=== PATIENT | male | born 1940 | race American Indian/Alaskan Native ===

== ENCOUNTER 2017-07-04 18:07 | Emergency (ER) | payer SELFPAY ==
[2017-07-04] MEDS ORDERED: NACL 0.9% 500 ML 500 ML IV ONE ×2 (20:21→23:09)
[2017-07-04 21:11] LABS: Hematocrit 36.3 % (35.5-45.6); Hemoglobin 11.8 gm/dl (11.8-15.2); Mean Corpuscular HGB Conc 33 % (32-34); Mean Corpuscular Hemoglobin 27 pg (28-32); Mean Corpuscular Volume 83 fl (84-94); Platelet Count 174 K/mm3 (140-440); Red Blood Count 4.38 M/mm3 (3.65-5.03); Red Cell Distribution Width 14.6 % (13.2-15.2)
[2017-07-04 21:27] LABS: Alanine Aminotransferase 19 units/L (7-56); Albumin 3.9 g/dL (3.9-5); BUN/Creatinine Ratio 14; Blood Urea Nitrogen 15 mg/dL (9-20); Calcium 8.4 mg/dL (8.4-10.2); Hemolysis Index 10
--- NOTE | 2017-07-04 21:28 | XRay Report ---
FINAL REPORT EXAM: XR CHEST 1V AP HISTORY: possible Sepsis TECHNIQUE: Single, portable chest x-ray. PRIORS: None. FINDINGS: Cardiac and mediastinal silhouette within normal limits. Lungs are normally expanded, without significant vascular congestion. No focal consolidation or apparent pneumothorax. Degenerative change in the thoracic spine. IMPRESSION: 1. No acute findings.
[2017-07-04 21:46] LABS: Basophils % (Manual) 0 % (0.0-1.8); Eosinophils % (Manual) 0 % (0.0-4.3); Total Cells Counted 100
[2017-07-04 21:47] LABS: Anisocytosis Few; Helmet Cells Rare; Ovalocytes Few
--- NOTE | 2017-07-04 21:49 | Emergency Department Report ---
ED General Adult HPI - General Chief complaint: Fever Stated complaint: FEVER,LETHARGIC Time Seen by Provider: 07/04/17 20:31 Source: EMS Mode of arrival: Ambulatory Limitations: No Limitations - History of Present Illness Initial comments: 77 yo male who comes in today due to fever. He states that the family checked his temperature on yesterday and it was 103. The patient also felt as though he had chills on yesterday. Today, he states that he feels fine. Denies any chest pain, shortness of breath, fever, chills, or other complaints. Temperature 99.3 on evaluation. -: days(s) (one ) Severity scale (0 -10): 0 Consistency: now resolved Associated Symptoms: denies other symptoms Treatments Prior to Arrival: none - Related Data Home Medications Medication Instructions Recorded Confirmed Last Taken AtorvaSTATin [Lipitor] 40 mg PO QHS 02/01/17 02/01/17 Unknown Ibuprofen [Motrin] 800 mg PO Q8HR PRN 02/01/17 02/01/17 Unknown Metoprolol [Lopressor] 25 mg PO BID 02/01/17 02/01/17 Unknown Tamsulosin [Flomax] 0.4 mg PO QDAY 02/01/17 02/01/17 Unknown amLODIPine [Norvasc] 5 mg PO DAILY 02/01/17 02/01/17 Unknown metFORMIN [Glucophage] 500 mg PO BID 02/01/17 02/01/17 Unknown Previous Rx's Medication Instructions Recorded Last Taken Type Ciprofloxacin HCl [Cipro] 500 mg PO BID #20 tablet 07/04/17 Unknown Rx Ondansetron [Zofran Odt] 4 mg PO Q8HR PRN #20 tab.rapdis 07/04/17 Unknown Rx Allergies Allergy/AdvReac Type Severity Reaction Status Date / Time Sulfa (Sulfonamide Allergy Swelling Verified 02/01/17 10:21 Antibiotics) ED Review of Systems ROS: Stated complaint: FEVER,LETHARGIC Other details as noted in HPI Constitutional: see HPI, fever Eyes: denies: eye pain, eye discharge, vision change ENT: denies: ear pain, throat pain Respiratory: denies: cough, shortness of breath, wheezing Cardiovascular: denies: chest pain, palpitations Endocrine: no symptoms reported Gastrointestinal: denies: abdominal pain, nausea, diarrhea Genitourinary: denies: urgency, dysuria Musculoskeletal: denies: back pain, joint swelling, arthralgia Skin: denies: rash, lesions Neurological: denies: headache, weakness, paresthesias Psychiatric: denies: anxiety, depression Hematological/Lymphatic: denies: easy bleeding, easy bruising ED Past Medical Hx - Past Medical History Previous Medical History?: Yes Hx Hypertension: Yes (X 15 YRS) Hx Heart Attack/AMI: No Hx Diabetes: Yes Hx GERD: Yes Hx Liver Disease: No Hx Renal Disease: Yes (BPH) Hx Sickle Cell Disease: No Hx Seizures: No - Social History Smoking Status: Former Smoker Substance Use Type: None - Medications Home Medications: Home Medications Medication Instructions Recorded Confirmed Last Taken Type AtorvaSTATin [Lipitor] 40 mg PO QHS 02/01/17 02/01/17 Unknown History Ibuprofen [Motrin] 800 mg PO Q8HR PRN 02/01/17 02/01/17 Unknown History Metoprolol [Lopressor] 25 mg PO BID 02/01/17 02/01/17 Unknown History Tamsulosin [Flomax] 0.4 mg PO QDAY 02/01/17 02/01/17 Unknown History amLODIPine [Norvasc] 5 mg PO DAILY 02/01/17 02/01/17 Unknown History metFORMIN [Glucophage] 500 mg PO BID 02/01/17 02/01/17 Unknown History Ciprofloxacin HCl [Cipro] 500 mg PO BID #20 tablet 07/04/17 Unknown Rx Ondansetron [Zofran Odt] 4 mg PO Q8HR PRN #20 tab.rapdis 07/04/17 Unknown Rx ED Physical Exam - General Limitations: No Limitations General appearance: alert, in no apparent distress - Head Head exam: Present: atraumatic, normocephalic - Eye Eye exam: Present: normal appearance - ENT ENT exam: Present: mucous membranes moist - Neck Neck exam: Present: normal inspection - Respiratory Respiratory exam: Present: normal lung sounds bilaterally. Absent: respiratory distress - Cardiovascular Cardiovascular Exam: Present: tachycardia - Extremities Exam Extremities exam: Present: normal inspection - Back Exam Back exam: Present: normal inspection - Neurological Exam Neurological exam: Present: alert, oriented X3 - Psychiatric Psychiatric exam: Present: normal affect, normal mood - Skin Skin exam: Present: warm, dry, intact, normal color. Absent: rash ED Course Vital Signs 01/11/18 20:15 Temperature 99.3 F Pulse Rate 107 H Respiratory 20 Rate Blood Pressure 148/79 Blood Pressure 148/79 [Right] O2 Sat by Pulse 94 Oximetry ED Medical Decision Making - Lab Data Result diagrams: 07/04/17 20:55 07/04/17 20:55 - EKG Data -: EKG Interpreted by Me EKG shows normal: sinus rhythm Rate: normal - EKG Data When compared to previous EKG there are: previous EKG unavailable Interpretation: no acute changes, normal EKG - Radiology Data Radiology results: report reviewed (No acute pathology ) - Medical Decision Making Sepsis Uti Dehydration - Differential Diagnosis sepsis, uti, dehydration Critical care attestation.: If time is entered above; I have spent that time in minutes in the direct care of this critically ill patient, excluding procedure time. ED Disposition Clinical Impression: UTI (urinary tract infection), Dehydration Disposition: TO HOME OR SELFCARE Is pt being admited?: No Does the pt Need Aspirin: No Condition: Stable Instructions: Dehydration (ED), Urinary Tract Infection in Men (ED) Additional Instructions: Take medicine as prescribed. May take tylenol 650 mg by mouth every 6-8 hours for temperature greater than 100.4. Follow up with your provider on discharge as scheduled. Prescriptions: Ciprofloxacin HCl [Cipro] 500 mg PO BID #20 tablet Ondansetron [Zofran Odt] 4 mg PO Q8HR PRN #20 tab.rapdis PRN Reason: Nausea And Vomiting Referrals: PARTH LAMBERT MD [Primary Care Provider] - 3-5 Days Time of Disposition: 23:27
[2017-07-04 22:42] LABS: Bacteria,Urine 1+ /HPF (Negative); Bilirubin,Urine NEG (Negative); Blood,Urine SM (Negative); Color,Urine Yellow (Yellow); Mucus,Urine FEW /HPF; Nitrite,Urine POS (Negative); Urobilinogen,Urine < 2.0 mg/dL (<2.0)
[2017-07-04] MEDS ORDERED: ROCEPHIN/NS 1 GM/50 ML 1 GM/50 ML BAG IV ONE (23:06)
[2017-07-04] MEDS ORDERED: cefTRIAXone 1 GM in NACL 0.9% 20 ML IV ONE (23:15)
[2017-07-04] MEDS ORDERED: NACL 0.9% 1000 ML 1,000 ML ONE (23:46)
[2017-07-05 00:03] VITALS: BP 132/68
== END 2017-07-05 00:45 | disposition home or self-care (01) ==
LOC: ED 18:07
DX: N39.0 Urinary tract infection, site not specified (principal); E86.0 Dehydration; I10 Essential (primary) hypertension; E11.9 Type 2 diabetes mellitus without complications; K21.9 Gastro-esophageal reflux disease without esophagitis; N40.0 Benign prostatic hyperplasia without lower urinary tract symptoms; Z88.2 Allergy status to sulfonamides; Z87.891 Personal history of nicotine dependence
CPT/HCPCS: 36415; 71045; 80053; 81001; 82140; 82805; 85007; 85025; 85610; 87040; 87076; 87086; 87186; 87400; 93005; 93010; 96361; 96374; 99284; J0696; J7030; J7040

== ENCOUNTER 2017-11-04 07:25 | Day surgery (SDC) | payer MEDICARE ==
[~2017-11-04 07:25] MED LIST: LACTATED RINGERS 1,000 ML IV SCH
[2017-11-04] MEDS ORDERED: DILAUDID IV PRN (08:40)
--- NOTE | 2017-11-04 08:40 | Anesthesia Day of Surgery ---
Anesthesia Day of Surgery - Day of Surgery Patient Examined: Yes Patient H&P Reviewed: Yes Patient is NPO: Yes Beta Blockers: Yes
--- NOTE | 2017-11-04 08:40 | Anesthesia Consultation ---
Anesthesia Consult and Med Hx Date of service: 11/04/17 - Airway Anesthetic Teeth Evaluation: Poor (loose) ROM Head & Neck: Adequate Mental/Hyoid Distance: Adequate Mallampati Class: Class II Intubation Access Assessment: Probably Good - Pulmonary Exam CTA: Yes - Cardiac Exam Cardiac Exam: RRR - Pre-Operative Health Status ASA Pre-Surgery Classification: ASA3 Proposed Anesthetic Plan: General - Pulmonary Hx Smoking: Yes (STOPPED X 20YRS-1/4 PPD X 18 YRS) Hx Respiratory Symptoms: Yes (hx bronchitis 30 yrs ago) Hx Sleep Apnea: (ABIMAEL PRE SCREEN HIGH RISK) - Cardiovascular System Hx Hypertension: Yes (X 15 YRS) Hx Heart Attack/AMI: No Hx Percutaneous Transluminal Coronary Angioplasty (PTCA): No - Central Nervous System Hx Seizures: No CVA: No Hx Back Pain: Yes - Endocrine Hx Liver Disease: No Hx Non-Insulin Dependent Diabetes: Yes - Hematic Hx Anemia: Yes Hx Sickle Cell Disease: No - Other Systems Hx Obesity: No - Additional Comments Anesthesia Medical History Comments: HLD, BPH, hoarse voice, poor historian
[2017-11-04] MEDS ORDERED: LOPRESSOR PO NR (08:48)
[2017-11-04 08:53] LABS: Hematocrit 36.6 % (35.5-45.6); Hemoglobin 12.1 gm/dl (11.8-15.2); Mean Corpuscular HGB Conc 33 % (32-34); Mean Corpuscular Hemoglobin 28 pg (28-32); Mean Corpuscular Volume 84 fl (84-94); Red Blood Count 4.37 M/mm3 (3.65-5.03)
[2017-11-04 08:54] LABS: Basophils # (Auto) 0.1 K/mm3 (0.0-0.1); Basophils % (Auto) 1.2 % (0.0-1.8); Eosinophils # (Auto) 0.2 K/mm3 (0.0-0.4); Eosinophils % (Auto) 2.4 % (0.0-4.3); Lymphocytes # (Auto) 2.7 K/mm3 (1.2-5.4); Lymphocytes % (Auto) 40.1 % (13.4-35.0); Monocytes # (Auto) 0.4 K/mm3 (0.0-0.8); Platelet Count 203 K/mm3 (140-440); Red Cell Distribution Width 13.8 % (13.2-15.2)
[2017-11-04] MEDS ORDERED: XYLOCAINE MPF 2% ONE (09:01)
[2017-11-04] MEDS ORDERED: SUBLIMAZE ONE (09:01)
[2017-11-04] MEDS ORDERED: DIPRIVAN 10 MG/ML IV ONE (09:02)
[2017-11-04] MEDS ORDERED: QUELICIN ONE (09:31)
[2017-11-04] MEDS ORDERED: ZEMURON IV ONE (09:31)
[2017-11-04] MEDS ORDERED: ANCEF/STERILE WATER 2 GM/20 ML IV NR (10:00)
[2017-11-04] MEDS ORDERED: ePHEDrine SULFATE ONE (10:14)
[2017-11-04] MEDS ORDERED: WATER FOR IRRIG STERILE IR ONE ×2 (10:41)
[2017-11-04] MEDS ORDERED: DECADRON ONE (10:46)
[2017-11-04] MEDS ORDERED: ROBINUL ONE (11:45)
[2017-11-04] MEDS ORDERED: LASIX ONE (11:45)
[2017-11-04] MEDS ORDERED: ZOFRAN ONE (11:45)
[2017-11-04] MEDS ORDERED: NEOSTIGMINE ONE (11:45)
--- NOTE | 2017-11-04 11:55 | Discharge Summary ---
Short Stay Discharge Plan Activity: other (no straining ) Weight Bearing Status: Full Weight Bearing Diet: low salt Wound: open to air, other (ice to perineum ) Special Instructions: other (ice pack ) Durable Medical Equipment Needed Upon Discharge: other (roland ) Follow up with: Julián SOUTH MD, [Primary Care Provider] - 7 Days KARLY SANTANA MD [Staff Physician] - 7 Days
--- NOTE | 2017-11-04 12:02 | Post Operative Note ---
Date of procedure: 11/04/17 Pre-op diagnosis: cap Post-op diagnosis: same Findings: 40 gram galnd Procedure: cysto sro ablation Anesthesia: GETA Surgeon: KARLY SANTANA Estimated blood loss: minimal Pathology: none Condition: stable Disposition: PACU
[2017-11-04] MEDS ORDERED: HumuLIN R SUB-Q NR (12:24)
--- NOTE | 2017-11-04 12:56 | Operative Report ---
PREOPERATIVE DIAGNOSES: Prostate cancer, low-grade, slow growing, left lobe. POSTOPERATIVE DIAGNOSES: Prostate cancer, low-grade, slow growing, left lobe. PROCEDURE: Cystoscopy, cryoablation of the prostate. SURGEON: Jose Maria Faust MD ANESTHESIA: General. FINDINGS: The gentleman with adenocarcinoma of the prostate. All options and treatment availability were discussed. He now elects for cryoablation of the prostate. Risks and implications discussed. DESCRIPTION OF PROCEDURE: The patient was brought to the operating room and placed on the operating table. Following induction of anesthesia, placed in lithotomy position, prepped and draped in usual sterile fashion. The cryoprobes were all tested. We elected to use 4 probes on the left and 5 on the right after measurement. Initially, a Mccall catheter was placed and the ultrasound measured the gland to be about 44 grams. Again, we focused on the left lobe. Based on the volume of tissue and this disease, we put 4 probes on the left, 3 on the right. After the probes were checked, probes 1 and 2 were placed and then we placed a Denonvilliers temperature probe and external sphincter temperature probe. Probe 5 and 6 were placed. Then, probe 7 and 3 and then probe 4. Excellent placement of the probes were placed. We were well away from the rectum. We checked the probes multiple times in both images, made sure they were not too deep inside and the measurement approximately 4 cm was accurate. At this point, after the probes were checked multiple times, the catheter was removed and flexible cystoscopy showed no urethral injury, bladder injury, and a wire was placed in the bladder. The warming probe was then placed and this was placed under visualization under ultrasound guidance. Once this was checked and all the probes were checked again, first freeze was carried out. We started from 1 and 2, then went from 3 and 7 and then 4 and then 5 and 6. Excellent freeze was accomplished. Again, making sure most of the freeze and the left lobe was completely . Denonvilliers dropped to about zero. It should be noted that it was mostly in the gland that Denonvilliers towards the right side and midline. At this point, a thaw was carried out and a second freeze in a symmetrical fashion was carried out after the probes were rechecked. The patient tolerated the procedure well. A second thaw was carried out and we left the warmer for approximately 20 minutes and it was removed and an 18-coude catheter was placed, which was draining clear. The patient tolerated the procedure well. Two stitches were placed just to be sure there was no oozing in the recovery room, with the probes were placed, brought to recovery room in stable condition. No significant bleeding. Mccall draining well. JOB# [id number] GUILLERMO/JANE
[2017-11-04] MEDS ORDERED: APRESOLINE ONE (12:58)
[2017-11-04] MEDS: APRESOLINE IV PRN ×2 (13:00→13:20)
[2017-11-04] MEDS ORDERED: HumuLIN R IV ONE (14:00)
--- NOTE | 2017-11-04 14:13 | Post Anesthesia Evaluation ---
- Post Anesthesia Evaluation Patient Participated: Yes Airway Patent: Yes Stable Respiratory Function: Yes Nausea/Vomiting: No Temp > 96.8F: Yes Pain Manageable: Yes Adequeate Hydration: Yes Anesthesia Complications: No
[2017-11-04] MEDS ORDERED: HumuLIN R SUB-Q ONE (14:46)
[2017-11-04 16:55] VITALS: BP 158/97
== END 2017-11-04 15:35 | disposition home or self-care (01) ==
LOC: OR 07:25
PROVIDERS: ATTEND Urology
DX: C61 Malignant neoplasm of prostate (principal); N40.0 Benign prostatic hyperplasia without lower urinary tract symptoms; E11.9 Type 2 diabetes mellitus without complications; I10 Essential (primary) hypertension; E78.5 Hyperlipidemia, unspecified; Z88.2 Allergy status to sulfonamides; Z79.899 Other long term (current) drug therapy; Z87.891 Personal history of nicotine dependence
CPT/HCPCS: 36415; 55873; 82962; 85025; A4217; C2618; J0330; J0360; J0690; J1100; J1170; J1940; J2405; J2704; J2710; J3010; J7120; J1815